=== PATIENT | female | born 1965 | race Caucasian/White ===

== ENCOUNTER 2017-05-23 06:46 | Observation (INO) | payer OTHER ==
[2017-05-23] MEDS ORDERED: ECOTRIN PO NR (07:16)
[2017-05-23] MEDS ORDERED: ECOTRIN PO ONE (07:33)
[2017-05-23 07:40] LABS: Basophils % (Auto) 0.6 % (0.0-1.8); Eosinophils # (Auto) 0.2 K/mm3 (0.0-0.4); Eosinophils % (Auto) 2.8 % (0.0-4.3); Hematocrit 39.8 % (30.3-42.9); Hemoglobin 13.1 gm/dl (10.1-14.3); Lymphocytes # (Auto) 2.4 K/mm3 (1.2-5.4); Lymphocytes % (Auto) 35.7 % (13.4-35.0); Mean Corpuscular HGB Conc 33 % (30-34); Mean Corpuscular Hemoglobin 28 pg (28-32); Mean Corpuscular Volume 85 fl (79-97); Monocytes # (Auto) 0.5 K/mm3 (0.0-0.8); Monocytes % (Auto) 7.6 % (0.0-7.3); Platelet Count 216 K/mm3 (140-440); Red Blood Count 4.69 M/mm3 (3.65-5.03); Red Cell Distribution Width 13.1 % (13.2-15.2)
[2017-05-23 07:49] LABS: INR 0.87 (0.87-1.13)
[2017-05-23 07:54] LABS: BUN/Creatinine Ratio 32; Blood Urea Nitrogen 19 mg/dL (7-17); Calcium 8.9 mg/dL (8.4-10.2); Hemolysis Index 23
[2017-05-23] MEDS ORDERED: NACL 0.9% 500 ML 500 ML IV SCH (08:00)
[2017-05-23] MEDS ORDERED: HEPARIN/NS 5000 UNIT/500ML(CATH LAB) 1,000 ML IR ONE (09:55)
[2017-05-23] MEDS: VERSED ONE ×2 (10:03→10:21)
[2017-05-23] MEDS: XYLOCAINE 2% INFILTRATI ONE ×2 (10:03→10:22)
[2017-05-23] MEDS: SUBLIMAZE ONE ×2 (10:04→10:21)
[2017-05-23] MEDS ORDERED: HEPARIN 10,000 UNITS/10 ML ONE (10:50)
[2017-05-23] MEDS ORDERED: HEPARIN/NS 5000 UNIT/500ML(CATH LAB) 500 ML IR ONE ×2 (10:56→11:42)
[2017-05-23] MEDS ORDERED: NITROGLYCERIN SYRINGE 0 ML ONE (10:59)
[2017-05-23] MEDS ORDERED: TRIDIL DRIP 50MG/250ML 50 MG/250 ML BOTTLE ONE (11:18)
[2017-05-23] MEDS: NITROSTAT SL ONE ×3 (11:19→11:31)
[2017-05-23] MEDS ORDERED: PLAVIX ONE (11:26)
[2017-05-23] MEDS ORDERED: ALUM-MAG HYDROX-SIMETH 200-200-20MG/5ML ONE (11:26)
[2017-05-23] MEDS ORDERED: ZOFRAN ONE (11:34)
[2017-05-23] MEDS ORDERED: ATROPINE 0.1% (CARDIAC) ONE (11:40)
[2017-05-23] MEDS ORDERED: NARCAN 2 MG/2 ML ONE (11:40)
[2017-05-23] MEDS ORDERED: ROMAZICON IV ONE (11:41)
[2017-05-23] MEDS ORDERED: NACL 0.9% 1000 ML 1,000 ML ONE ×2 (11:45→20:46)
[2017-05-23] MEDS ORDERED: ZOFRAN IV PRN (12:29)
[2017-05-23] MEDS ORDERED: AMBIEN PO PRN (12:29)
[2017-05-23] MEDS ORDERED: NACL 0.9% 1000 ML 1,000 ML IV SCH (13:00)
--- NOTE | 2017-05-23 13:01 | Event Note ---
Date: 05/23/17 Cardiac cath/grafts completed. Adhoc PCI of SVG to diagonal, excellent results with 4.5-5.0mm BM stents. Post intervention, after transition off cath table, patient developed syncope. Clinical picture was a vasodepressor reaction. Clinical resolution with IV fluids and supportive management.
--- NOTE | 2017-05-23 14:03 | Cardiac Catherization Report ---
REASON FOR PROCEDURE: The patient is a 52-year-old woman with history of 5-way coronary artery bypass done 6 years ago. She presented with chest pain and an abnormal thallium stress test with moderate ischemia in the lateral wall. As a result, she was recommended for cardiac catheterization. PROCEDURES: 1. Left heart catheterization. 2. Selective left and right coronary angiography. 3. Selective angiography of the saphenous vein grafts. 4. Selective angiography of the left internal mammary artery graft. 5. Left ventricle angiography. 6. Coronary angioplasty and stenting of the saphenous vein graft to the diagonal branch. The patient was prepped and draped in a sterile fashion after informed consent. The right femoral artery was entered using the Seldinger technique, followed by placement of a 6-Italian sheath. A selective left and right coronary angiography was then performed using #4 right and left Bay catheters. Angiography of the saphenous vein graft to the left coronary system was performed using the right Bay catheter. We exchanged for a right coronary artery bypass catheter for the saphenous vein graft to the right coronary artery. We then exchanged for left internal mammary artery catheter for angiography of the left internal mammary artery graft. A pigtail catheter was then exchanged and advanced to the left ventricle and we performed left ventricle angiography. FINDINGS: HEMODYNAMICS: Left ventricle end diastolic pressure was 25, following coronary angiography. Ascending aortic pressure was 193/94. There was no significant pressure gradient on pullback across the aortic valve. CORONARY ANGIOGRAPHY: The left main coronary artery contained mild irregularities. The left anterior descending artery was completely occluded in its proximal to mid segment, within a previously stented segment. This was a long segment of chronic total occlusion. The left internal mammary artery graft to the LAD was patent with good anastomosis and good distal runoff. The saphenous vein graft to a proximal diagonal branch of the LAD, contained an eccentric 80% stenosis of its mid body. The circumflex system contained a long, complex bifurcation stenosis, involving the first obtuse marginal branch. Two saphenous vein grafts, previously directed at the circumflex system, were both occluded at their origins. The right coronary artery was similarly occluded in its proximal segment. The saphenous vein graft to the distal right coronary artery was patent with good anastomosis and good distal runoff. There was normal left ventricular systolic function, with ejection fraction 60-65% in the VARNER projection. CORONARY ANGIOPLASTY: After review of the angiograms, ad hoc coronary intervention to the saphenous vein graft to the diagonal branch was recommended. We selected a right Bay guiding catheter and advanced to the ostium of the vein graft. A 0.014 inch Band Attacher 50 guidewire was then selected, introduced into the vein graft across the lesional segment. Following wire placement, we predilated the stenosis using a 3.0 mm balloon catheter. We then deployed a 5.0 x 18 mm Ultra bare-metal stent, covering the lesional segment and inflated the stent to optimal pressures. Due to concern about a small edge dissection at the distal border of the stent, we deployed another 4.5 x 13 bare-metal stent in juxtaposition to the distal border. Following deployment of the 2 stents as described, there was an excellent angiographic result, 0 residual stenosis, EVI 3 flow was maintained, and no apparent residual dissection. COMPLICATIONS: Following the procedure, the blood pressure remained elevated at 190-200 systolic. Prior to femoral sheath removal, the patient received a sublingual nitroglycerin in an attempt to lower the blood pressure. Following sublingual nitroglycerin, the patient was reported to develop a headache, nausea, following which she had a brief syncopal episode associated with bradycardia and profound diaphoresis. On clinical observation, it appeared to have been a vasodepressor reaction which resolved with administration of fluids. Her blood pressure and heart rate were restored to baseline levels and she regained normal mentation. She was able to move all 4 extremities and was well oriented to time, place and person and situation. After the apparent vasodepressor reaction, we performed a 12-lead EKG that showed a sinus rhythm, with ST and T-wave abnormalities in the anterolateral leads, unchanged from her baseline. Her ECG changes at baseline thought to be due to repolarization abnormality of LVH. CONCLUSION: 1. Severe 3-vessel coronary disease. 2. Patent left internal mammary artery graft to the LAD. 3. Severe stenosis, 80% eccentric narrowing of the saphenous vein graft to the diagonal branch. 4. Occluded saphenous vein grafts x 2 to the circumflex system. 5. Patent saphenous vein graft to the right coronary artery. 6. Normal left ventricular systolic function, ejection fraction 60-65%, in the VARNER projection. 7. Successful ad hoc angioplasty and stenting of the saphenous vein graft to the diagonal branch. Excellent angiographic result, following deployment of 4.5-5.0 mm bare metal stents. The complex diffuse bifurcation disease of the ivanof bay circumflex artery will be recommended for medical therapy. If there are recurrent symptoms of angina, consideration will be given to staged second vessel bifurcation intervention to this vessel. JOB# [id number] KEITH/ZAIRE
[2017-05-23] MEDS: LOPRESSOR PO SCH (21:35)
[2017-05-23] MEDS ORDERED: PRAVACHOL PO SCH (22:00)
[2017-05-24 07:44] LABS: Basophils % (Auto) 0.5 % (0.0-1.8); Eosinophils # (Auto) 0.1 K/mm3 (0.0-0.4); Eosinophils % (Auto) 1.6 % (0.0-4.3); Hematocrit 35.9 % (30.3-42.9); Hemoglobin 11.8 gm/dl (10.1-14.3); Lymphocytes # (Auto) 1.5 K/mm3 (1.2-5.4); Lymphocytes % (Auto) 20.9 % (13.4-35.0); Mean Corpuscular HGB Conc 33 % (30-34); Mean Corpuscular Hemoglobin 28 pg (28-32); Mean Corpuscular Volume 84 fl (79-97); Monocytes # (Auto) 0.5 K/mm3 (0.0-0.8); Monocytes % (Auto) 6.6 % (0.0-7.3); Platelet Count 210 K/mm3 (140-440); Red Cell Distribution Width 13.4 % (13.2-15.2)
[2017-05-24 08:04] LABS: Creatine Kinase MB 6.3 ng/mL (0.0-4.0)
[2017-05-24 08:07] LABS: BUN/Creatinine Ratio 23; Blood Urea Nitrogen 16 mg/dL (7-17); Calcium 8.9 mg/dL (8.4-10.2); Hemolysis Index 11
[2017-05-24 08:22] LABS: Chol/HDL Ratio 9.05 %; HDL Cholesterol 38 mg/dL (40-59); LDL Cholesterol,Direct 276 mg/dL (50-130)
[2017-05-24] MEDS ORDERED: COZAAR PO SCH (10:00)
[2017-05-24] MEDS ORDERED: PLAVIX PO SCH (10:00)
[2017-05-24] MEDS ORDERED: NON-FORMULARY (Losartan/Hydrochlorothiazide [Losartan-Hctz 100-25 Mg Tab] 1 EACH) PO SCH (10:00)
[2017-05-24] MEDS ORDERED: HCTZ PO SCH (10:00)
[2017-05-24] MEDS ORDERED: ECOTRIN PO SCH (10:00)
[2017-05-24] MEDS: LOPRESSOR PO SCH (10:15)
[2017-05-24] MEDS ORDERED: Fluarix Quad 2017-2018(36 MOS+ IM ONE (12:00)
[2017-05-24] MEDS ORDERED: PNEUMOVAX 23 IM ONE (12:00)
[2017-05-24 12:05] VITALS: BP 126/67
--- NOTE | 2017-05-24 13:06 | Short Stay Summary ---
Short Stay Documentation Date of service: 05/24/17 - History H&P: obtained from office - Allergies and Medications Current Medications: Allergies No Known Allergies Allergy (Verified 05/23/17 07:15) Home Medications Medication Instructions Recorded Confirmed Last Taken Type Aspirin EC [Aspirin Enteric Coated 81 mg PO QDAY 05/23/17 05/23/17 05/22/17 History TAB] Losartan/Hydrochlorothiazide 1 each PO QDAY 05/23/17 05/23/17 05/22/17 History [Losartan-Hctz 100-25 mg Tab] Metoprolol Tartrate 50 mg PO BID 05/23/17 05/23/17 05/22/17 History Pravastatin Sodium [Pravachol] 40 mg PO HS 05/23/17 05/23/17 05/22/17 History Active Medications Aspirin (Ecotrin) 325 mg PO QDAY [facility] Last Admin: 05/24/17 10:14 Dose: 325 mg Clopidogrel Bisulfate (Plavix) 75 mg PO QDAY [facility] Last Admin: 05/24/17 10:13 Dose: 75 mg Hydrochlorothiazide (Hctz) 25 mg PO QDAY [facility] Last Admin: 05/24/17 10:14 Dose: 25 mg Losartan Potassium (Cozaar) 100 mg PO QDAY [facility] Last Admin: 05/24/17 10:14 Dose: 100 mg Metoprolol Tartrate (Lopressor) 50 mg PO BID [facility] Last Admin: 05/24/17 10:15 Dose: 50 mg Ondansetron HCl (Zofran) 4 mg IV Q8H PRN PRN Reason: N/V unrelieved by Regcassidy Pravastatin Sodium (Pravachol) 40 mg PO [facility] Last Admin: 05/23/17 21:35 Dose: 40 mg Zolpidem Tartrate (Ambien) 5 mg PO QHS PRN PRN Reason: Sleep - Physical exam General appearance: no acute distress HEENT: PERRLA Lungs: Clear to auscultation Heart: Regular rate - Brief post op/procedure progress note Condition: stable - Hospital course Hospital course: Stable overnight observation. - Disposition Condition at discharge: Good Disposition: DC- TO HOME OR SELFCARE Short Stay Discharge Plan Activity: advance as tolerated Diet: low fat, low cholesterol, low salt Special Instructions: no heavy lifting (for 48 hours.) Follow up with: MANN PRETTY MD [Primary Care Provider] - 7 Days Forms: CardCat PCI D/C Instructions Prescriptions: Clopidogrel [Plavix] 75 mg PO QDAY #30 tablet
== END 2017-05-24 15:30 | disposition home or self-care (01) ==
LOC: CATHLABREC 06:46 → CC1 12:29 → 4A 23:36
PROVIDERS: ADMIT Internal Medicine Cardiovascular Disease; ATTEND Internal Medicine Cardiovascular Disease
DX: I25.10 Atherosclerotic heart disease of native coronary artery without angina pectoris (principal); I10 Essential (primary) hypertension; E78.5 Hyperlipidemia, unspecified; Z95.1 Presence of aortocoronary bypass graft; Z79.899 Other long term (current) drug therapy
CPT/HCPCS: 36415; 80048; 80061; 82550; 82553; 84484; 85025; 85347; 85610; 85730; 90686; 90732; 92937; 93005; 93010; 93458; 96374; A9270; C1725; C1769; C1876; C1887; C1894; G0008; G0009; G0378; J0461; J1644; J2250; J2310; J2405; J3010; J7030; J7040; 90471; Q9967

== ENCOUNTER 2018-06-20 09:10 | Outpatient (CLI) | payer OTHER ==
[2018-06-20 10:27] LABS: Basophils # (Auto) 0.1 K/mm3 (0.0-0.1); Basophils % (Auto) 0.8 % (0.0-1.8); Eosinophils # (Auto) 0.2 K/mm3 (0.0-0.4); Eosinophils % (Auto) 2.7 % (0.0-4.3); Hematocrit 38.9 % (30.3-42.9); Hemoglobin 13.1 gm/dl (10.1-14.3); Lymphocytes # (Auto) 2.2 K/mm3 (1.2-5.4); Mean Corpuscular HGB Conc 34 % (30-34); Mean Corpuscular Hemoglobin 28 pg (28-32); Mean Corpuscular Volume 84 fl (79-97); Monocytes # (Auto) 0.5 K/mm3 (0.0-0.8); Monocytes % (Auto) 7.1 % (0.0-7.3); Platelet Count 254 K/mm3 (140-440); Red Blood Count 4.65 M/mm3 (3.65-5.03); Red Cell Distribution Width 13.6 % (13.2-15.2)
[2018-06-20 10:27] LABS: Alanine Aminotransferase 14 units/L (7-56); Albumin 4.7 g/dL (3.9-5); BUN/Creatinine Ratio 23; Blood Urea Nitrogen 16 mg/dL (7-17); Calcium 9.5 mg/dL (8.4-10.2); Chol/HDL Ratio 7.28 %; HDL Cholesterol 46 mg/dL (40-59); Hemolysis Index 23; LDL Cholesterol,Direct 299 mg/dL (50-130)
== END 2018-06-20 09:11 | disposition home or self-care (01) ==
LOC: LAB 09:10
PROVIDERS: ATTEND Internal Medicine
DX: I10 Essential (primary) hypertension (principal); E78.5 Hyperlipidemia, unspecified; E66.3 Overweight; I25.10 Atherosclerotic heart disease of native coronary artery without angina pectoris; E78.00 Pure hypercholesterolemia, unspecified; Z95.5 Presence of coronary angioplasty implant and graft
CPT/HCPCS: 36415; 80053; 80061; 82306; 82607; 83036; 84443; 85025

== ENCOUNTER 2018-06-24 08:25 | Outpatient (CLI) | payer OTHER ==
--- NOTE | 2018-06-24 09:24 | Mammography Report ---
BILATERAL DIGITAL SCREENING MAMMOGRAM with CAD: 06/24/18 CLINICAL: Routine screening. COMPARISON:None available. However, a prior mammogram was apparently done at [facility]. FINDINGS: The breasts are heterogeneously dense, which may obscure small masses. Bilateral asymmetries require comparison with a prior mammogram or additional imaging.No architectural distortion or suspicious calcifications. IMPRESSION: Bilateral asymmetries requiring further evaluation. BI-RADS CATEGORY: 0 -- Additional Evaluation Required RECOMMENDATION: Comparison with a previous mammogram. We will attempt to obtain a prior mammogram for comparison. If we do not obtain a prior mammogram within 30 days, a revised report will be issued recommending a recall for additional imaging. Please be advised that the patient should not schedule an appointment for return until adequate time (at least 2 weeks) has passed for us to obtain the prior mammogram. ACR BI-RADS MAMMOGRAPHIC CODES: 0 = Needs additional imaging evaluation; 1 = Negative; 2 = Benign; 3 = Probably benign; 4 = Suspicious; 5 = Malignant; 6 = Known biopsy-proven malignancy COMMENT: 1. Dense breast tissue, i.e., adenosis, fibrocystic changes, etc., may obscure an underlying neoplasm. 2. Approximately 10% of cancers are not detected with mammography. 3. A negative mammography report should not delay biopsy if a clinically suspicious mass is present. COMMENT: Patient follow-up letters are generated via our [employer] application.
== END 2018-06-24 08:26 | disposition home or self-care (01) ==
LOC: MAMMO 08:25
PROVIDERS: ATTEND Internal Medicine
DX: Z12.31 Encounter for screening mammogram for malignant neoplasm of breast (principal); I10 Essential (primary) hypertension; E78.00 Pure hypercholesterolemia, unspecified
CPT/HCPCS: 77067

== ENCOUNTER 2018-07-11 14:36 | Outpatient (CLI) | payer OTHER ==
--- NOTE | 2018-07-11 15:24 | Mammography Report ---
BILATERAL DIGITAL DIAGNOSTIC MAMMOGRAM : 07/11/18 14:36:00 CLINICAL: Recalled for bilateral asymmetries COMPARISON:06/24/18 screening FINDINGS: Additional bilateral mammographic views were performed and are negative. IMPRESSION: No mammographic evidence of malignancy. BI-RADS CATEGORY: 1 -- Negative RECOMMENDATION: Routine mammographic screening in one year. ACR BI-RADS MAMMOGRAPHIC CODES: 0 = Needs additional imaging evaluation; 1 = Negative; 2 = Benign; 3 = Probably benign; 4 = Suspicious; 5 = Malignant; 6 = Known biopsy-proven malignancy COMMENT: 1. Dense breast tissue, i.e., adenosis, fibrocystic changes, etc., may obscure an underlying neoplasm. 2. Approximately 10% of cancers are not detected with mammography. 3. A negative mammography report should not delay biopsy if a clinically suspicious mass is present. COMMENT: Patient follow-up letters are generated via our [employer] application.
== END 2018-07-11 14:37 | disposition home or self-care (01) ==
LOC: MAMMO 14:36
PROVIDERS: ATTEND Internal Medicine
DX: R92.8 Other abnormal and inconclusive findings on diagnostic imaging of breast (principal); I10 Essential (primary) hypertension; E78.00 Pure hypercholesterolemia, unspecified
CPT/HCPCS: 77066

== ENCOUNTER 2018-10-07 08:31 | Outpatient (CLI) | payer OTHER ==
[2018-10-07 09:31] LABS: Chol/HDL Ratio 8.14 %
== END 2018-10-07 08:32 | disposition home or self-care (01) ==
LOC: LAB 08:31
PROVIDERS: ATTEND Internal Medicine
DX: E78.5 Hyperlipidemia, unspecified (principal); E78.00 Pure hypercholesterolemia, unspecified; I10 Essential (primary) hypertension
CPT/HCPCS: 36415; 80061

== ENCOUNTER 2019-01-29 08:59 | Outpatient (CLI) | payer OTHER ==
[2019-01-29 10:29] LABS: Chol/HDL Ratio 5.04 %
== END 2019-01-29 09:00 | disposition home or self-care (01) ==
LOC: LAB 08:59
PROVIDERS: ATTEND Internal Medicine
DX: E78.5 Hyperlipidemia, unspecified (principal); I10 Essential (primary) hypertension; I25.10 Atherosclerotic heart disease of native coronary artery without angina pectoris
CPT/HCPCS: 36415; 80061

== ENCOUNTER 2019-03-10 09:24 | Day surgery (SDC) | payer OTHER ==
--- NOTE | 2019-03-10 11:56 | Anesthesia Consultation ---
Anesthesia Consult and Med Hx Date of service: 03/10/19 - Airway Anesthetic Teeth Evaluation: Partials ROM Head & Neck: Adequate Mental/Hyoid Distance: Adequate Mallampati Class: Class II Intubation Access Assessment: Probably Good - Pre-Operative Health Status ASA Pre-Surgery Classification: ASA3 Proposed Anesthetic Plan: MAC - Pulmonary Hx Smoking: No Hx Asthma: No Hx Respiratory Symptoms: No SOB: No COPD: No Home Oxygen Therapy: No Hx Pneumonia: No Hx Sleep Apnea: Yes - Cardiovascular System Hx Hypertension: Yes (2000) Hx Coronary Artery Disease: Yes Hx Heart Attack/AMI: No Hx Angina: Yes Hx Percutaneous Transluminal Coronary Angioplasty (PTCA): No Hx Cardia Arrhythmia: No Hx Pacemaker: No Hx Internal Defibrillator: No Hx Valvular Heart Disease: No Hx Heart Murmur: No Hx Peripheral Vascular Disease: No - Central Nervous System Hx Neuromuscular Disorder: No Hx Seizures: No CVA: No Hx Back Pain: No Hx Psychiatric Problems: No - Gastrointestinal Hx Ulcer: No Hx Gastroesophageal Reflux Disease: No - Endocrine Hx Renal Disease: No Hx End Stage Renal Disease: No Hx Cirrhosis: No Hx Liver Disease: No Hx Insulin Dependent Diabetes: No Hx Non-Insulin Dependent Diabetes: No Hx Thyroid Disease: No Hx Hypothyroidism: No Hx Hyperthyroidism: No - Hematic Hx Anemia: No Hx Sickle Cell Disease: No - Other Systems Hx Alcohol Use: No Hx Substance Use: No Hx Cancer: No Hx Obesity: No
--- NOTE | 2019-03-10 11:57 | Anesthesia Day of Surgery ---
Anesthesia Day of Surgery - Day of Surgery Patient Examined: Yes Patient H&P Reviewed: Yes Patient is NPO: Yes Beta Blockers: No Cardiac Clearance: Yes (per MD Hodges)
[2019-03-10] MEDS ORDERED: PROPOFOL 200 MG/20 ML VIAL IV ONE ×2 (12:00)
[2019-03-10] MEDS ORDERED: SODIUM CHLORIDE 0.9% 1000 ML 1,000 ML IV SCH (12:00)
--- NOTE | 2019-03-10 12:29 | Short Stay Summary ---
Short Stay Documentation Date of service: 03/10/19 Narrative H&P: The patient presents for her first screening colonoscopy. No FH of colon neoplasia. Average risks. - Allergies and Medications Current Medications: Allergies No Known Allergies Allergy (Verified 05/23/17 07:15) Home Medications Medication Instructions Recorded Confirmed Last Taken Type Aspirin EC [Halfprin EC] 81 mg PO QDAY 05/23/17 05/23/17 05/22/17 History Losartan/Hydrochlorothiazide 1 each PO QDAY 05/23/17 05/23/17 05/22/17 History [Losartan-Hctz 100-25 mg Tab] Metoprolol Tartrate 50 mg PO BID 05/23/17 05/23/17 05/22/17 History Pravastatin Sodium [Pravachol] 40 mg PO HS 05/23/17 05/23/17 05/22/17 History Clopidogrel [Plavix] 75 mg PO QDAY #30 tablet 05/24/17 Unknown Rx Active Medications Sodium Chloride (Nacl 0.9% 1000 Ml) 1,000 mls @ 50 mls/hr IV DIRECT BOOKER - Physical exam General appearance: no acute distress, well-nourished Integumentary: no rash, no growths, no abnormal pigmentation HEENT: Atraumatic, PERRLA, EOMI, Mucous membr. moist/pink Lungs: Clear to auscultation, Normal air movement Breasts: deferred Heart: Regular rate, Normal S1, Normal S2, No murmurs Gastrointestinal: normoactive bowel sounds, no tenderness, no distended, no masses, no guarding, no organomegaly Female Genitourinary: deferred Rectal Exam: deferred, normal rectal tone, no mass Extremities: no ischemia, pulses intact, pulses symmetrical, No edema, normal temperature, normal color, Full ROM Neurological: Normal gait, Normal speech, Strength at 5/5 X4 ext, Normal tone, Sensation intact, Cranial nerves 3-12 NL - Brief post op/procedure progress note Date of procedure: 03/10/19 Findings: see dictation Estimated blood loss: none Pathology: none Condition: stable - Disposition Condition at discharge: Good Disposition: DC-01 TO HOME OR SELFCARE - Discharge Diagnoses (1) Colon cancer screening Status: Acute Short Stay Discharge Plan Activity: other (No driving for 24 hours) Weight Bearing Status: Weight Bear as Tolerated Diet: regular Follow up with: NAHEED JIMENEZ MD [Primary Care Provider] - 7 Days
--- NOTE | 2019-03-10 12:31 | Operative Report ---
Operative Report Operative Report: Date of procedure: 03/10/2019 Preprocedure diagnosis: Colon cancer screening, no prior studies. Average risk. Post procedure diagnosis: Few diverticula of the left colon Procedure: Colonoscopy to the cecum Endoscopist: Dr. Hodges Anesthesia: Monitored anesthesia care per anesthesia department Estimated blood loss: 0 Medications: Monitored anesthesia care. See separate report by anesthesia for details. After careful discussion of the nature and purpose of the procedure as well as details of the technique risks benefits and alternatives the patient gave consent. Please see recent history and physical from the office. The patient was placed in the left lateral decubitus position and medicated per anesthesia. A rectal exam was performed sphincter tone was normal there were no masses palpable. The Olympus colonoscope was passed transanally and advanced under continuous direct vision without difficulty to the cecum. The colon was well prepared. The cecum was normal. The ascending colon was normal and on forward and retroflexed views. The transverse colon, descending colon, and sigmoid colon were normal except for a few sigmoid diverticula. The rectum was normal on forward and retroflexed views. The procedure was well-tolerated overall and the patient was observed in recovery. Conclusions: Few sigmoid diverticula, otherwise normal colonoscopy to the cecum. Plan: Repeat colonoscopy in 10 years, sooner if clinically indicated. Signed electronically: Levi Hodges M.D.
[2019-03-10 13:06] VITALS: BP 155/86
--- NOTE | 2019-03-10 13:54 | Post Anesthesia Evaluation ---
- Post Anesthesia Evaluation Patient Participated: Yes Airway Patent: Yes Stable Respiratory Function: Yes Nausea/Vomiting: No Temp > 96.8F: Yes Pain Manageable: Yes Adequeate Hydration: Yes Anesthesia Complications: No Block Receding Appropriately: Not Applicable Patient on Ventilator: No
[2019-03-10] MEDS ORDERED: LIDOCAINE MPF (2%) 20 MG/1 ML VIAL 5 ML ONE (14:00)
== END 2019-03-10 09:25 | disposition home or self-care (01) ==
LOC: GIO 09:24
PROVIDERS: ATTEND Internal Medicine Gastroenterology
DX: Z12.11 Encounter for screening for malignant neoplasm of colon (principal); K57.30 Diverticulosis of large intestine without perforation or abscess without bleeding; I25.118 Atherosclerotic heart disease of native coronary artery with other forms of angina pectoris; E78.00 Pure hypercholesterolemia, unspecified; I10 Essential (primary) hypertension; G47.30 Sleep apnea, unspecified; Z82.61 Family history of arthritis; Z79.82 Long term (current) use of aspirin; Z95.1 Presence of aortocoronary bypass graft; Z79.899 Other long term (current) drug therapy; Z98.890 Other specified postprocedural states; Z82.49 Family history of ischemic heart disease and other diseases of the circulatory system
CPT/HCPCS: 45378; J2704; J7030

== ENCOUNTER 2019-07-13 09:39 | Outpatient (CLI) | payer OTHER ==
[2019-07-13 10:00] LABS: Basophils % (Auto) 0.6 % (0.0-1.8); Eosinophils # (Auto) 0.1 K/mm3 (0.0-0.4); Eosinophils % (Auto) 1.7 % (0.0-4.3); Hematocrit 41.3 % (30.3-42.9); Hemoglobin 13.7 gm/dl (10.1-14.3); Lymphocytes # (Auto) 2.2 K/mm3 (1.2-5.4); Lymphocytes % (Auto) 29.3 % (13.4-35.0); Mean Corpuscular HGB Conc 33 % (30-34); Mean Corpuscular Volume 83 fl (79-97); Monocytes # (Auto) 0.4 K/mm3 (0.0-0.8); Monocytes % (Auto) 5.9 % (0.0-7.3); Platelet Count 251 K/mm3 (140-440); Red Blood Count 4.97 M/mm3 (3.65-5.03); Red Cell Distribution Width 13.1 % (13.2-15.2)
[2019-07-13 10:22] LABS: Alanine Aminotransferase 23 units/L (7-56); Albumin 4.9 g/dL (3.9-5); BUN/Creatinine Ratio 18; Blood Urea Nitrogen 14 mg/dL (7-17); Chol/HDL Ratio 4.11 %; HDL Cholesterol 52 mg/dL (40-59); Hemolysis Index 13; LDL Cholesterol,Direct 140 mg/dL (50-130)
[2019-07-15 13:04] LABS: Vitamin D, 25-OH, D2 <4 ng/mL
== END 2019-07-13 09:40 | disposition home or self-care (01) ==
LOC: LAB 09:39
PROVIDERS: ATTEND Internal Medicine
DX: Z00.00 Encounter for general adult medical examination without abnormal findings (principal); Z13.21 Encounter for screening for nutritional disorder; Z13.1 Encounter for screening for diabetes mellitus; E78.5 Hyperlipidemia, unspecified
CPT/HCPCS: 36415; 80053; 80061; 82306; 82607; 83036; 84443; 85025

== ENCOUNTER 2019-12-01 09:42 | Outpatient (CLI) | payer OTHER ==
[2019-12-01 10:25] LABS: Chol/HDL Ratio 6.91 %
== END 2019-12-01 09:43 | disposition home or self-care (01) ==
LOC: LAB 09:42
PROVIDERS: ATTEND Internal Medicine
DX: Z13.1 Encounter for screening for diabetes mellitus (principal); E78.5 Hyperlipidemia, unspecified
CPT/HCPCS: 36415; 80061; 83036

== ENCOUNTER 2020-11-01 07:06 | Day surgery (SDC) | payer OTHER ==
[2020-11-01] MEDS ORDERED: CLOPIDOGREL 300 MG TAB PO ONE (07:33)
[2020-11-01] MEDS ORDERED: ASPIRIN 81 MG TAB CHEW ONE (07:48)
[2020-11-01] MEDS ORDERED: SODIUM CHLORIDE 0.9% 500 ML 500 ML IV SCH (08:00)
[2020-11-01] MEDS ORDERED: CLOPIDOGREL 75 MG TAB PO ONE (08:00)
[2020-11-01 08:03] LABS: Basophils % (Auto) 0.1 % (0.0-1.8); Eosinophils # (Auto) 0.2 K/mm3 (0.0-0.4); Eosinophils % (Auto) 2.2 % (0.0-4.3); Hematocrit 41.1 % (30.3-42.9); Hemoglobin 14.1 gm/dl (10.1-14.3); Lymphocytes # (Auto) 2.6 K/mm3 (1.2-5.4); Lymphocytes % (Auto) 33.5 % (13.4-35.0); Mean Corpuscular HGB Conc 34 % (30-34); Mean Corpuscular Volume 82 fl (79-97); Monocytes # (Auto) 0.6 K/mm3 (0.0-0.8); Monocytes % (Auto) 7.7 % (0.0-7.3); Platelet Count 237 K/mm3 (140-440); Red Blood Count 5.02 M/mm3 (3.65-5.03)
[2020-11-01 08:14] LABS: INR 0.85 (0.87-1.13); Partial Thromboplastin Time 28.8 Sec. (24.2-36.6)
[2020-11-01 08:18] LABS: Blood Urea Nitrogen 15 mg/dL (7-17); Hemolysis Index 0
[2020-11-01 08:23] LABS: BUN/Creatinine Ratio 21
[2020-11-01] MEDS ORDERED: HEPARIN 10,000 UNITS/10 ML VIAL ONE (09:06)
[2020-11-01] MEDS ORDERED: HEPARIN/NS 5000 UNIT/500ML 1,000 ML IR ONE (09:06)
[2020-11-01] MEDS ORDERED: NITROGLYCERIN SYRINGE 0 ML ONE (09:07)
[2020-11-01] MEDS ORDERED: ASPIRIN 81 MG TAB CHEW PO SCH (10:00)
[2020-11-01] MEDS: MIDAZOLAM 2 MG/2 ML INJ ONE ×2 (10:09→10:24)
[2020-11-01] MEDS: fentaNYL 100 MCG/2 ML INJ ONE ×2 (10:10→10:24)
[2020-11-01] MEDS: LIDOCAINE (2%) 20 MG/1 ML VIAL 20 ML MDV INFILTRATI ONE ×2 (10:10→10:25)
--- NOTE | 2020-11-01 10:59 | Electrocardiograph Report ---
[facility] Test Date: 2020-11-01 Test Time: 08:29:07 Pat Name: MALIK BERTRAND Department: Room: Gender: F Dust Handler: VASILE : 1965 Requested By: ADELAIDE MADRIGAL Order Number: [id number] Reading MD: Osiel Keenan Measurements Intervals [place] Rate: 62 P: 68 LA: 167 QRS: 39 QRSD: 92 T: 177 QT: 456 QTc: 463 Interpretive Statements Sinus rhythm Abnormal T, consider ischemia, diffuse leads No previous ECG available for comparison Electronically Signed On 11-01-2020 10:58:39 EDT by Osiel Keenan
--- NOTE | 2020-11-01 11:14 | Discharge Summary ---
Short Stay Discharge Plan Activity: advance as tolerated Weight Bearing Status: Partial Weight Bearing Diet: low fat, low cholesterol, low salt Wound: keep clean and dry Special Instructions: no heavy lifting (3 days) Follow up with: NAHEED JIMEENZ MD [Primary Care Provider] - 7 Days BEVERLEY NG MD [Staff Physician] - 7 Days
[2020-11-01] MEDS ORDERED: SODIUM CHLORIDE 0.9% 1000 ML 1,000 ML IV SCH (11:15)
[2020-11-01] MEDS ORDERED: traMADol 50 MG TAB PO PRN (12:00)
--- NOTE | 2020-11-01 12:25 | Cardiac Catherization Report ---
DATE OF SERVICE: 11/01/2020 REASON FOR OPERATION: The patient is a 55-year-old woman with a history of complex multivessel coronary artery disease, status post 5-way coronary artery bypass in 2010, followed by coronary stent placement to the saphenous vein graft to the diagonal branch done in 2012. She presents now with recurrent chest pain, recommended for outpatient cardiac catheterization. PROCEDURES: 1. Left heart catheterization. 2. Selective left and right coronary angiography. 3. Angiography of the left internal mammary artery graft. 4. Angiography of multiple saphenous vein grafts. 5. Left ventricular angiography. 6. Sedation time start 10:24, end 10:47. DESCRIPTION OF PROCEDURE: The patient was prepped and draped in a sterile fashion after informed consent. The right femoral artery was entered using Seldinger technique followed by placement of a 6-Divehi sheath. Selective left and right coronary angiography was performed using #4 left and right Bay catheters. The right Bay was used for saphenous vein graft angiography. Four saphenous vein grafts were opacified. The catheter was then exchanged for a left internal mammary artery catheter that was used for left internal mammary graft angiography. Finally, we exchanged for a pigtail catheter that was used for left ventricular angiography. The catheters were then removed, sheath removed and hemostasis achieved using manual compression. The patient was returned to the postprocedure unit in stable condition. There were no complications. FINDINGS: HEMODYNAMICS: Left ventricular end diastolic pressure was 22, following coronary angiography. The ascending aortic pressure 148/94. There was no significant pressure gradient on pullback across the aortic valve. CORONARY ANGIOGRAPHY: Left main coronary artery contained mild luminal irregularities. Left anterior descending artery was completely occluded in its mid segment within a previously stented segment. The left internal mammary artery graft to the LAD was patent with good anastomosis to the mid LAD beyond the occluded segment, and good distal runoff into a mildly diseased distal LAD system. The first diagonal branch of the LAD was occluded at its origin. The saphenous vein graft to this vessel was patent with good anastomosis and good distal runoff. A stent that was implanted in the mid body of this saphenous vein graft back in 2017, was widely patent with no significant restenosis. The proximal circumflex artery was notable for a complex, bifurcation, greater than 99% stenosis. This complex lesion was at the origin of a small caliber mid obtuse marginal. The AV groove circumflex then continued, terminating in a very small caliber insignificant-appearing terminal branch. The saphenous vein grafts x2 that were anastomosed to the circumflex system were both occluded at their origins. This was no different from the previous cardiac catheterization in 2018. The resighini vessel stenosis of the circumflex was also no different from the previous cardiac catheterization in 2018. The right coronary artery was severely diffusely diseased and occluded in its mid segment. However, the saphenous vein graft to the distal right coronary artery at this time was occluded in its proximal segment. The distal right coronary artery was filled by collaterals from the left coronary system. This occlusion of the saphenous vein graft to the right coronary artery is a new finding when compared to the previous cardiac catheterization in 2018. There was normal left ventricular systolic function with ejection fraction 60%. There was only mild inferobasal hypokinesis. CONCLUSION: 1. Severe 3-vessel coronary artery disease. 2. Patent left internal mammary artery graft to the LAD. 3. Patent saphenous vein graft to the diagonal branch of the LAD. The previously implanted stents in this saphenous vein graft from 3 years ago remain widely patent. 4. Saphenous vein grafts x2 to the circumflex system are both occluded, unchanged from the previous cardiac catheterization. The resighini vessel disease of the circumflex system is also unchanged from the previous cardiac catheterization. 5. Occluded saphenous vein graft to the distal right coronary artery. This is the most significant new finding from the previous cardiac catheterization 3 years ago. This vein graft was previously patent feeding the distal right coronary artery. The distal vessel is now filled by collaterals from the left coronary system. 6. Well preserved left ventricular systolic function with ejection fraction 60%. RECOMMENDATIONS: Aggressive risk factor modification and medical therapy for small vessel coronary artery disease. This should include optimal antianginal therapy. The vein graft to the right coronary artery is the new finding on angiography since 2018, and not amenable to revascularization. We will recommend aggressive medical therapy as indicated. TID: [id number] RECEIPT: [id number] KEITH/JOSE
[2020-11-01 16:35] VITALS: BP 136/77
== END 2020-11-01 07:07 | disposition home or self-care (01) ==
LOC: CATHLABREC 07:06
PROVIDERS: ATTEND Internal Medicine Cardiovascular Disease
DX: R07.89 Other chest pain (principal); I10 Essential (primary) hypertension; I25.709 Atherosclerosis of coronary artery bypass graft(s), unspecified, with unspecified angina pectoris; E78.5 Hyperlipidemia, unspecified; Z98.61 Coronary angioplasty status; Z79.899 Other long term (current) drug therapy; Z79.82 Long term (current) use of aspirin; Z98.890 Other specified postprocedural states; G47.30 Sleep apnea, unspecified; Z82.49 Family history of ischemic heart disease and other diseases of the circulatory system
CPT/HCPCS: 36415; 80048; 85025; 85610; 85730; 93005; 93459; 99156; 99157; C1894; J1644; J2250; J3010; J7040; Q9967

== ENCOUNTER 2021-03-10 01:15 | Emergency (ER) | payer SELFPAY ==
[2021-03-10 01:18] VITALS: BP 146/83
[2021-03-10] MEDS ORDERED: ONDANSETRON 4 MG/2 ML INJ IV ONE (02:16)
[2021-03-10 02:42] LABS: Bilirubin,Urine NEG (Negative); Blood,Urine MOD (Negative); Color,Urine Amber (Yellow)
[2021-03-10 02:43] LABS: WBC,Urine > 182.0 /HPF (0.0-6.0)
[2021-03-10] MEDS ORDERED: SODIUM CHLORIDE 0.9% 1000 ML 1,000 ML IV ONE (02:47)
[2021-03-10] MEDS ORDERED: MORPHINE 4 MG/1 ML INJ IV ONE ×2 (02:47→02:51)
[2021-03-10] MEDS ORDERED: MORPHINE 4 MG/1 ML INJ ONE (02:49)
[2021-03-10 02:59] LABS: Hematocrit 35.3 % (30.3-42.9); Hemoglobin 11.4 gm/dl (10.1-14.3); Mean Corpuscular HGB Conc 32 % (30-34); Mean Corpuscular Volume 84 fl (79-97); Platelet Count 218 K/mm3 (140-440); Red Blood Count 4.21 M/mm3 (3.65-5.03); Red Cell Distribution Width 13.7 % (13.2-15.2)
--- NOTE | 2021-03-10 03:00 | Emergency Department Report ---
ED General Adult HPI - General Chief complaint: Abdominal Pain Stated complaint: ABDOMINAL PAIN Time Seen by Provider: 03/10/21 02:16 Source: patient, family Mode of arrival: Ambulatory Limitations: No Limitations - History of Present Illness Initial comments: Patient 55-year-old female who presents with left flank pain radiating to suprapubic x3 days with nausea vomiting fever. Patient does have history of UTI. Pain a 5/10 exacerbated by voiding. Pain is relieved by nothing tried. Patient presents tonight with via POV. Severity scale (0 -10): 10 - Related Data Home Medications Medication Instructions Recorded Confirmed Last Taken Aspirin EC [Halfprin EC] 81 mg PO QDAY 05/23/17 11/01/20 11/01/20 Pravastatin Sodium [Pravachol] 40 mg PO HS 05/23/17 11/01/20 10/31/20 Ezetimibe [Zetia] 10 mg PO QDAY 11/01/20 11/01/20 10/31/20 Metoprolol Xl [Metoprolol 25 mg PO QDAY 11/01/20 11/01/20 10/31/20 SUCCINATE ER TAB] NIFEdipine [Nifedipine ER] 60 mg PO DAILY 11/01/20 11/01/20 10/31/20 hydroCHLOROthiazide [HCTZ] 25 mg PO QDAY 11/01/20 11/01/20 10/31/20 Previous Rx's Medication Instructions Recorded Last Taken Type Clopidogrel [Plavix] 75 mg PO QDAY #30 tablet 05/24/17 11/01/20 Rx Ketorolac [Toradol] 10 mg PO Q6H PRN #12 tablet 03/10/21 Unknown Rx levoFLOXacin [Levaquin TAB] 500 mg PO QDAY 7 Days #7 tablet 03/10/21 Unknown Rx Allergies Allergy/AdvReac Type Severity Reaction Status Date / Time No Known Allergies Allergy Verified 05/23/17 07:15 ED Review of Systems ROS: Stated complaint: ABDOMINAL PAIN Other details as noted in HPI Constitutional: denies: chills, fever Eyes: denies: eye pain, eye discharge, vision change ENT: denies: ear pain, throat pain Respiratory: denies: cough, shortness of breath, wheezing Cardiovascular: denies: chest pain, palpitations Endocrine: no symptoms reported Gastrointestinal: abdominal pain, nausea, vomiting. denies: diarrhea, constipation, melena Genitourinary: urgency, dysuria, frequency. denies: hematuria Musculoskeletal: back pain (left flank ) Skin: denies: rash, lesions Neurological: denies: headache, weakness, paresthesias Psychiatric: denies: anxiety, depression Hematological/Lymphatic: denies: easy bleeding, easy bruising ED Past Medical Hx - Past Medical History Previous Medical History?: Yes Hx Hypertension: Yes (2000) Hx Heart Attack/AMI: No Hx Congestive Heart Failure: No Hx Diabetes: No Hx Liver Disease: No Hx Renal Disease: No Hx Sickle Cell Disease: No Hx Seizures: No Hx Asthma: No Hx COPD: No - Surgical History Past Surgical History?: Yes Hx Open Heart Surgery: Yes (09/14/2010) Hx Pacemaker: No Hx Internal Defibrillator: No - Social History Smoking Status: Never Smoker - Medications Home Medications: Home Medications Medication Instructions Recorded Confirmed Last Taken Type Aspirin EC [Halfprin EC] 81 mg PO QDAY 05/23/17 11/01/20 11/01/20 History Pravastatin Sodium [Pravachol] 40 mg PO HS 05/23/17 11/01/20 10/31/20 History Clopidogrel [Plavix] 75 mg PO QDAY #30 tablet 05/24/17 11/01/20 11/01/20 Rx Ezetimibe [Zetia] 10 mg PO QDAY 11/01/20 11/01/20 10/31/20 History Metoprolol Xl [Metoprolol 25 mg PO QDAY 11/01/20 11/01/20 10/31/20 History SUCCINATE ER TAB] NIFEdipine [Nifedipine ER] 60 mg PO DAILY 11/01/20 11/01/20 10/31/20 History hydroCHLOROthiazide [HCTZ] 25 mg PO QDAY 11/01/20 11/01/20 10/31/20 History Ketorolac [Toradol] 10 mg PO Q6H PRN #12 tablet 03/10/21 Unknown Rx levoFLOXacin [Levaquin TAB] 500 mg PO QDAY 7 Days #7 tablet 03/10/21 Unknown Rx ED Physical Exam - General Limitations: No Limitations General appearance: alert, in no apparent distress - Head Head exam: Present: atraumatic, normocephalic - Eye Eye exam: Present: normal appearance, EOMI Pupils: Present: normal accommodation - ENT ENT exam: Present: mucous membranes moist - Neck Neck exam: Present: normal inspection. Absent: tenderness - Respiratory Respiratory exam: Present: normal lung sounds bilaterally. Absent: respiratory distress, wheezes - Cardiovascular Cardiovascular Exam: Present: regular rate, normal rhythm, normal heart sounds. Absent: systolic murmur, diastolic murmur, rubs, gallop - GI/Abdominal GI/Abdominal exam: Present: soft, distended, tenderness (left flank), normal bowel sounds. Absent: guarding, rebound, rigid, bruit, hernia - Rectal Rectal exam: Present: deferred - Extremities Exam Extremities exam: Present: normal inspection, full ROM - Back Exam Back exam: Present: full ROM, CVA tenderness (L). Absent: tenderness, CVA tenderness (R) - Neurological Exam Neurological exam: Present: alert, oriented X3, CN II-XII intact, normal gait - Psychiatric Psychiatric exam: Present: normal affect, normal mood - Skin Skin exam: Present: warm, dry, intact, normal color. Absent: rash ED Course Vital Signs 03/10/21 01:17 Temperature 99.4 F Pulse Rate 94 H Respiratory 18 Rate Blood Pressure 146/83 [Right] O2 Sat by Pulse 95 Oximetry ED Medical Decision Making - Lab Data Result diagrams: 03/10/21 02:30 03/10/21 02:30 Labs 03/10/21 03/10/21 03/10/21 02:30 02:30 Unknown WBC 21.7 H RBC 4.21 Hgb 11.4 Hct 35.3 MCV 84 MCH 27 L MCHC 32 RDW 13.7 Plt Count 218 Add Manual Diff Complete Total Counted 100 Seg Neuts % (Manual) 83.0 H Lymphocytes % (Manual) 13.0 L Monocytes % (Manual) 4.0 Nucleated RBC % Not Reportable Seg Neutrophils # Man 18.0 H Band Neutrophils # 0.0 Lymphocytes # (Manual) 2.8 Abs React Lymphs (Man) 0.0 Monocytes # (Manual) 0.9 H Eosinophils # (Manual) 0.0 Basophils # (Manual) 0.0 Metamyelocytes # 0.0 Myelocytes # 0.0 Promyelocytes # 0.0 Blast Cells # 0.0 WBC Morphology Not Reportable Hypersegmented Neuts Not Reportable Hyposegmented Neuts Not Reportable Hypogranular Neuts Not Reportable Smudge Cells Not Reportable Toxic Granulation Not Reportable Toxic Vacuolation Not Reportable Dohle Bodies Not Reportable Pelger-Huet Anomaly Not Reportable Virgil Rods Not Reportable Platelet Estimate Consistent w auto Clumped Platelets Not Reportable Plt Clumps, EDTA Not Reportable Large Platelets Not Reportable Giant Platelets Not Reportable Platelet Satelliting Not Reportable Plt Morphology Comment Not Reportable RBC Morphology Normal Dimorphic RBCs Not Reportable Polychromasia Not Reportable Hypochromasia Not Reportable Poikilocytosis Not Reportable Anisocytosis Not Reportable Microcytosis Not Reportable Macrocytosis Not Reportable Spherocytes Not Reportable Pappenheimer Bodies Not Reportable Sickle Cells Not Reportable Target Cells Not Reportable Tear Drop Cells Not Reportable Ovalocytes Not Reportable Helmet Cells Not Reportable Ng-[place] Bodies Not Reportable Tridell Rings Not Reportable Olvin Cells Not Reportable Bite Cells Not Reportable Crenated Cell Not Reportable Elliptocytes Not Reportable Acanthocytes (Spur) Not Reportable Rouleaux Not Reportable Hemoglobin C Crystals Not Reportable Schistocytes Not Reportable Malaria parasites Not Reportable Michel Bodies Not Reportable Hem Pathologist Commnt No Sodium 132 L Potassium 3.2 L Chloride 96.7 L Carbon Dioxide 20 L Anion Gap 19 BUN 11 Creatinine 0.9 Estimated GFR > 60 BUN/Creatinine Ratio 12 Glucose 140 H Calcium 9.5 Total Bilirubin 1.10 AST 26 ALT 20 Alkaline Phosphatase 65 Total Protein 7.4 Albumin 4.1 Albumin/Globulin Ratio 1.2 Lipase 20 Urine Color Leida Urine Turbidity Turbid Urine pH 6.0 Ur Specific [place] 1.013 Urine Protein 100 mg/dl Urine Glucose (UA) Neg Urine Ketones 20 Urine Blood Mod Urine Nitrite Pos Urine Bilirubin Neg Urine Urobilinogen 4.0 Ur Leukocyte Esterase Lg Urine WBC (Auto) > 182.0 H Urine RBC (Auto) 87.0 Urine WBC Clumps 3+ - Radiology Data Radiology results: report reviewed, image reviewed CT ABDOMEN AND PELVIS WITHOUT CONTRAST INDICATION / CLINICAL INFORMATION: Abdominal pain with difficulty urinating x 4 days. TECHNIQUE: Axial CT images were obtained through the abdomen and pelvis without IV contrast. All CT scans at this location are performed using CT dose reduction for ALARA by means of automated exposure control. COMPARISON: None available. FINDINGS: LOWER CHEST: Coronary artery calcification. LIVER: No significant abnormality. GALLBLADDER: Calcified gallstone. BILE DUCTS: No significant abnormality. PANCREAS: No significant abnormality. SPLEEN: No significant abnormality. ADRENALS: No significant abnormality. RIGHT KIDNEY / URETER: 2 mm nonobstructing stone upper pole. Mild distention and inflammation at the ureter. LEFT KIDNEY / URETER: 2 nonobstructing stones. The larger is at the lower pole measuring 3 mm . Moderate distention of the left renal collecting system and ureter with adjacent inflammation. The distal ureter is not well seen due to inflammation in the pelvis. STOMACH / SMALL BOWEL: No significant abnormality. COLON: No significant abnormality. APPENDIX: No significant abnormality. PERITONEUM: No free fluid. No free air. No fluid collection. LYMPH NODES: No significant adenopathy. VASCULAR STRUCTURES: Moderate atherosclerotic vascular calcification. URINARY BLADDER: Wall thickening of the bladder which is mildly distended. There is prominent adjacent inflammation. REPRODUCTIVE ORGANS: No significant abnormality. ADDITIONAL FINDINGS: None. SKELETAL SYSTEM: No significant abnormality. IMPRESSION: 1. Bladder thickening with prominent adjacent inflammation due to cystitis. Inflammation involves both ureters. The left ureter is dilated. It is difficult to determine if this is all due to the pelvic inflammation or if a small distal stone is present. Medications are seen deep within the pelvis. 2. Small nonobstructing calyceal stones. 3. Calcified gallstones. Signer Name: Leonard Robbins MD Signed: 03/10/2021 3:49 AM Workstation Name: [id number] Transcribed By: ES Dictated By: Leonard Robbins MD Electronically Authenticated By: Leonard Robbins MD Signed Date/Time: 03/10/21 0349 - Medical Decision Making CT abdomen pelvis demonstrates multiple nonobstructing renal stones, calcified gallstones, UA positive for leukocytes nitrates WBCs, symptoms are improved with medications given in ED.. Patient is tolerating p.o. intake without nausea or vomiting. There is no fever or chills. Plan DC to home with prescriptions, follow-up with urology, follow-up with primary care doctor. Return to emergency department if symptoms worsen or unable to tolerate by mouth intake. Patient verbalizes agreement and understanding of discharge plan will be DC'd with and POV at this time Critical care attestation.: If time is entered above; I have spent that time in minutes in the direct care of this critically ill patient, excluding procedure time. ED Disposition Clinical Impression: Kidney stones, Gallstones Disposition: HOME / SELF CARE / HOMELESS Is pt being admited?: No Does the pt Need Aspirin: No Condition: Stable Instructions: Abdominal Pain (ED), Low-Purine Eating Plan, Kidney Stones, Easy -to-Read, Cholelithiasis, [id number] Additional Instructions: Take medications as prescribed, follow-up with urology, follow-up with your doctor, in 2 to 3 days. Return to emergency department if symptoms worsen Prescriptions: levoFLOXacin [Levaquin TAB] 500 mg PO QDAY 7 Days #7 tablet Ketorolac [Toradol] 10 mg PO Q6H PRN #12 tablet PRN Reason: Pain Referrals: SCOTT GAN MD [Staff Physician] - 3-5 Days [facility] [Provider Group] - 3-5 Days Forms: Work/School Release Form(ED) Time of Disposition: 04:52
[2021-03-10 03:23] LABS: Alanine Aminotransferase 20 units/L (7-56); Albumin 4.1 g/dL (3.9-5); BUN/Creatinine Ratio 12; Blood Urea Nitrogen 11 mg/dL (7-17); Calcium 9.5 mg/dL (8.4-10.2); Hemolysis Index 5
[2021-03-10] MEDS ORDERED: cefTRIAXone/NS 1 GM/50 ML 1 GM/50 ML BAG IV ONE (03:32)
[2021-03-10 03:48] LABS: Total Cells Counted 100
[2021-03-10 03:49] LABS: Platelet Estimate Consistent w Auto; RBC Morphology Normal
--- NOTE | 2021-03-10 03:53 | Cat Scan Report ---
CT ABDOMEN AND PELVIS WITHOUT CONTRAST INDICATION / CLINICAL INFORMATION: Abdominal pain with difficulty urinating x 4 days. TECHNIQUE: Axial CT images were obtained through the abdomen and pelvis without IV contrast. All CT scans at this location are performed using CT dose reduction for ALARA by means of automated exposure control. COMPARISON: None available. FINDINGS: LOWER CHEST: Coronary artery calcification. LIVER: No significant abnormality. GALLBLADDER: Calcified gallstone. BILE DUCTS: No significant abnormality. PANCREAS: No significant abnormality. SPLEEN: No significant abnormality. ADRENALS: No significant abnormality. RIGHT KIDNEY / URETER: 2 mm nonobstructing stone upper pole. Mild distention and inflammation at the ureter. LEFT KIDNEY / URETER: 2 nonobstructing stones. The larger is at the lower pole measuring 3 mm . Moderate distention of the left renal collecting system and ureter with adjacent inflammation. The distal ureter is not well seen due to inflammation in the pelvis. STOMACH / SMALL BOWEL: No significant abnormality. COLON: No significant abnormality. APPENDIX: No significant abnormality. PERITONEUM: No free fluid. No free air. No fluid collection. LYMPH NODES: No significant adenopathy. VASCULAR STRUCTURES: Moderate atherosclerotic vascular calcification. URINARY BLADDER: Wall thickening of the bladder which is mildly distended. There is prominent adjacen t inflammation. REPRODUCTIVE ORGANS: No significant abnormality. ADDITIONAL FINDINGS: None. SKELETAL SYSTEM: No significant abnormality. IMPRESSION: 1. Bladder thickening with prominent adjacent inflammation due to cystitis. Inflammation involves bot h ureters. The left ureter is dilated. It is difficult to determine if this is all due to the pelvic inflammation or if a small distal stone is present. Medications are seen deep within the pelvis. 2. Small nonobstructing calyceal stones. 3. Calcified gallstones. Signer Name: Leonard Robbins MD Signed: 03/10/2021 3:49 AM Workstation Name: [id number]
== END 2021-03-10 05:33 | disposition home or self-care (01) ==
LOC: ED 01:15
DX: N20.0 Calculus of kidney (principal); K80.80 Other cholelithiasis without obstruction; I10 Essential (primary) hypertension
CPT/HCPCS: 36415; 74176; 80053; 81001; 83690; 85007; 85025; 96361; 96365; 96375; 99284; J0696; J2270; J2405; J7030; Q0162